=== PATIENT | male | born 1990 | race African-American/Black ===

== ENCOUNTER 2021-01-17 19:25 | Emergency (ER) | payer OTHER ==
[~2021-01-17] VITALS: Ht 165.1 cm; Wt 63.5 kg
--- NOTE | ~2021-01-17 | EMS ---
[address] [address] EMS Patient Care Report Name: NANDO CHARLES III Room #: DEP PAT Sewell#: [id number] Admission: 01/17/21 Attend Phys: Discharge: 01/17/21 Date of : [birth year] Report #: [id number] THIS REPORT FOR: //name// Report Transmitted: 01/20/2021 13:19 EMS Care Summary [place], [place]/[facility] Incident [id number] @ 01/17/2021 18:42 Incident Location [address] [place] [address] Patient NANDO CHARLES Male, 30 Years 1990 Patient Address [address] [place] [address] Patient History None Reported, Patient Medications None Reported, Chief Complaint overdose Disposition Transported No Lights/[place] Dispatch Reason Overdose/Poisoning/Ingestion Transported To [facility] Narrative ARRIVED TO FIND PT RECLINED IN THE FRONT SEAT OF A CAR. BYSTANDER STATES THAT PT TOOK AN UNKNOWN AMOUNT OF AN UNKNOWN PILL AND IS NOW UNRESPONSIVE. PT MOVED TO COT, SECURED WITH STRAPS X2, LOADED WITHOUT INCIDENT. DUE TO PT PRESENTATION, OPIOID OVERDOSE SUSPECTED. IV ESTABLISHED, NARCAN ADMINISTERED. ENROUTE, PT BEGAN TO AWAKEN [address] [address] EMS Patient Care Report Name: NANDO CHARLES III Room #: DEP Donato#: [id number] Admission: 01/17/21 Attend Phys: Discharge: 01/17/21 Date of : [birth year] Report #: [id number] ARRIVED. PT TAKEN INSIDE ON COT TO ER 16. PT ABLE TO ROLL OFF COT TO BED RAILS RAISED X2. REPORT GIVEN TO NURSE, PT CARE TRANSFERRED. Initial Vitals @19:05P: 110,R: 34,SpO2: 100, @19:11P: 122,R: 34,CO: 3, @19:04P: 112,R: 16,BP: 125/63,Pain: 0/10,GCS: 3,Glucose: 122,SpO2: 99,Revised Trauma: 8, @19:17P: 110,R: 12,BP: 116/75,Pain: 0/10,GCS: 12,CO: 9,SpO2: 99,Revised Trauma: 11, @19:10P: 115,R: 16,BP: 108/70,Pain: 0/10,GCS: 15,SpO2: 99,Revised Trauma: 12, Assessments @19:03MENTAL:Unresponsive,SKIN:HEENT:Head/Face: No Abnormalities,Neck/Airway: No Abnormalities,LUNG SOUNDS:General: No Abnormalities,Left Upper: No Abnormalities,Right Upper: No Abnormalities,Left Lower: No Abnormalities,Right Lower: No Abnormalities,ABDOMEN:General: No Abnormalities,Left Upper: No Abnormalities,Right Upper: No Abnormalities,Left Lower: No Abnormalities,Right Lower: No Abnormalities,PELVIS//GI:No Abnormalities,EXTREMITIES:Left Arm: No Abnormalities,Right Arm: No Abnormalities,Left Leg: No Abnormalities,Right Leg: No Abnormalities,PULSE:Radial: 2+ Normal,NEURO:No Abnormalities,@19:24MENTAL:Confused,SKIN:HEENT:LUNG SOUNDS:ABDOMEN:PELVIS//GI:EXTREMITIES:PULSE:NEURO: Impression Overdose - Other opioids Procedures @19:09Narcan - 0.4 Milligrams (mg) - Intravenous (IV)Response: Improved@19:08Saline Lock 10cc (18 ga) Site: Antecubital-LeftResponse: UnchangedSucceeded@19:12Zofran - 4 Milligrams (mg) - Intravenous (IV)Response: Unchanged Timeline 18:41,Call Received 18:41,Dispatch Notified 18:42,Dispatched 18:43,En Route 19:02,On Scene 19:03,At Patient 19:04,BP: 125/63 M,PULSE: 112,RR: 16 R,SPO2: 99 Ox,ETCO2: ,B,PAIN: 0,GCS: 3, 19:05,BP: / M,PULSE: 110,RR: 34 R,SPO2: 100 Ox,ETCO2: ,BG: ,PAIN: ,GCS: , 19:08,Saline Lock 10cc 18 ga Site: Antecubital-Left,Response: UnchangedSucceeded, [facility] [address] [place] [address] EMS Patient Care Report Name: NANDO CHARLES [facility] Room #: [facility] Donato#: [id number] Admission: 01/17/21 Attend Phys: Discharge: 01/17/21 Date of : [birth year] Report #: [id number] 19:08,Depart Scene 19:09,Narcan - 0.4 Milligrams (mg) - Intravenous (IV),Response: Improved 19:10,BP: 108/70 M,PULSE: 115,RR: 16 R,SPO2: 99 Ox,ETCO2: ,BG: ,PAIN: 0,GCS: 15, 19:11,BP: / M,PULSE: 122,RR: 34 R,SPO2: Ox,ETCO2: ,BG: ,PAIN: ,GCS: , 19:12,Zofran - 4 Milligrams (mg) - Intravenous (IV),Response: Unchanged 19:17,BP: 116/75 M,PULSE: 110,RR: 12 R,SPO2: 99 Ox,ETCO2: ,BG: ,PAIN: 0,GCS: 12, 19:25,At Destination 19:35,Call Closed Disclaimer v1.1 Copyright 2020 [employer] This EMS Care Summary contains data elements from the applicable legal record (which may be displayed differently). It is designed to provide pertinent information for the following purposes: continuity of care, clinical quality, and state data reporting. The complete legal record is available to ED staff and administrators of the receiving hospital in [employer]'s Patient Tracker. All data is provided "as is."
[~2021-01-17 19:25] MED LIST: NAPROSYN500 MG PO; NOHOMEMEDICATIONS; NORCO 5-325 TA1 EACH PO
[2021-01-17 20:56] LABS: ABSOLUTE NEUTROPHILS 6.2 thou/uL (1.4-8.2); BASOPHILS 0.3 % (0.0-2.0); EOSINOPHILS 0.1 % (0.0-3.0); HEMATOCRIT 40.4 % (42.0-52.0); HEMOGLOBIN 14.3 gm/dL (14.0-18.0); LYMPHOCYTES 10.3 % (24.0-44.0); MCH 33.1 pg (26.0-34.0); MCHC 35.5 g/dL (28.0-37.0); MCV 93.4 fL (80.0-100.0); MONOCYTES 3.8 % (1.0-8.0); PLATELET COUNT 159 thou/uL (150-400); POLYS 85.5 % (36.0-66.0); RBC 4.32 mil/uL (4.50-6.00); WBC 7.2 thou/uL (4.0-11.0)
[2021-01-17 20:57] LABS: URINE BILIRUBIN NEGATIVE (Negative); URINE BLOOD NEGATIVE (Negative); URINE CLARITY CLEAR; URINE COLOR YELLOW; URINE GLUCOSE-RANDOM* NEGATIVE (Negative); URINE KETONES NEGATIVE (Negative); URINE LEUKOCYTES-REFLEX NEGATIVE (Negative); URINE NITRITE-REFLEX NEGATIVE (Negative); URINE PROTEIN (DIPSTICK) 1+ (Negative); URINE SPECIFIC GRAVITY >= 1.030 (1.005-1.035)
[2021-01-17 20:58] LABS: CREATININE 1.3 mg/dL (0.7-1.3); POTASSIUM 4.1 mmol/L (3.5-5.1)
[2021-01-17 21:05] LABS: AMP/METHAMP Negative (Negative); BARBITURATES Negative (Negative); BENZODIAZEPINES Negative (Negative); COCAINE Negative (Negative); METHADONE Negative (Negative); OPIATES Negative (Negative); PCP Negative (Negative)
[2021-01-17 21:05] LABS: ALBUMIN 3.9 g/dL (3.4-5.0); SALICYLATE 2.7 mg/dL (2.8-20.0); TOTAL BILIRUBIN 0.5 mg/dL (0.2-1.0)
[2021-01-17 21:06] LABS: MUCUS 0-3 Light strn/LPF (None Seen); SQUAMOUS 0-3 Few /LPF (0-3)
[2021-01-17 21:07] LABS: BACTERIA-REFLEX None Seen /HPF (None Seen); CRYSTALS None Seen /LPF (None Seen); HYALINE CASTS 0-3 Few /LPF (None Seen); URINE RBC None Seen /HPF (NONE SEEN); URINE WBC-REFLEX 0-5 Rare /HPF (0-5)
[2021-01-17 21:41] LABS: TOTAL PROTEIN 7.8 g/dL (6.4-8.2)
[2021-01-17 23:22] VITALS: BP 116/82
--- NOTE | 2021-01-18 10:49 | EKG ---
[address] [place] [address] ELECTROCARDIOGRAM REPORT Name: NANDO CHARLES [id number] Admission: 01/17/21 Attend Phys: Discharge: 01/17/21 Date of : [birth year] Report #: [id number] [facility] ED Test Date: 2021-01-17 Test Time: 20:30:22 Pat Name: NANDO CHARLES Department: Room: Gender: Can Filler: amy mcginnis : 1990 Requested By: Rene Taveras Order Number: [id number] MD: Salvatore Resendez Measurements Intervals [place] Rate: 106 P: 83 ID: [id number] QRS: 96 QRSD: 84 T: 51 QT: 346 QTc: 460 Interpretive Statements Sinus tachycardia Borderline right axis deviation No previous ECG available for comparison Electronically Signed On 01-18-2021 10:49:06 CDT by Salvatore Resendez [email or web address] <ELECTRONICALLY SIGNED> By: Salvatore Resendez MD, [facility] 01/18/21 1049 2030 29 Salvatore Resendez MD, FACC /EPI
== END 2021-01-17 23:25 | disposition home or self-care (01) ==
LOC: ER 19:25
PROVIDERS: Emergency Medicine
DX: R41.82 Altered mental status, unspecified (principal); F10.129 Alcohol abuse with intoxication, unspecified; Z90.89 Acquired absence of other organs; Y90.9 Presence of alcohol in blood, level not specified